=== PATIENT | male | born 2005 | race Caucasian/White ===

== ENCOUNTER 2025-03-06 20:17 | Emergency (ER) | payer SELFPAY ==
[~2025-03-06] VITALS: Ht 176.5 cm; Wt 61.3 kg
[2025-03-06 20:20] VITALS: TEMP 36.9; O2SAT 100
[2025-03-06 22:13] VITALS: BP 144/108; PULSE 70; RESP 18; O2SAT 100
== END 2025-03-06 22:14 | disposition home or self-care (01) ==
LOC: ER 20:17
DX: F43.9 Reaction to severe stress, unspecified (principal); R51.9 Headache, unspecified
CPT/HCPCS: 71045; 93005; 99283